=== PATIENT | male | born 1990 | race American Indian/Alaskan Native ===

== ENCOUNTER 2018-07-09 20:47 | Emergency (ER) | payer OTHER ==
[2018-07-09] MEDS ORDERED: PROVENTIL IH ONE ×2 (21:01→22:33)
--- NOTE | 2018-07-09 21:02 | Emergency Department Report ---
Blank Doc - Documentation Documentation: C/O SOB and wheezing and cough time 1. Wheezing and rhonchi throughout. Resp therapy paged for breathing treatment. This initial assessment diagnostic orders/clinical plan/treatment (s) is/Are subject change based on patient's health status, clinical progression and re-a ssessment by fellow clinical providers in the ED. Further treatment and work-up at subsequent clinical providers discretion. Patient/guardians urged not to elope from s their condition may be serious if not clinically assessed and managed. Initial order include:
[2018-07-09] MEDS ORDERED: SOLU-Medrol IV ONE (22:33)
[2018-07-09] MEDS ORDERED: MAGNESIUM SULFATE 2GM/50ML 2 GM/50 ML BAG IV ONE (22:33)
[2018-07-09] MEDS ORDERED: ATROVENT IH ONE (22:33)
--- NOTE | 2018-07-09 22:37 | Emergency Department Report ---
HPI - General Chief Complaint: Adult Asthma Time Seen by Provider: 07/09/18 20:57 - HPI HPI: Han 19 The patient is 28-year-old male presenting with a chief complaint of asthma exacerbation. Patient states weather triggers his asthma and yesterday he began having wheezing, chest tightness shortness breath or difficulty taking a deep breath in. Patient states his symptoms feel just like his asthma. Patient has occasional cough is nonproductive. Patient denies history of fever Location: Lungs Duration: 2 days Quality: Asthma Severity: Moderate Modifying factors: [see above] Context: [see above] Mode of transportation: [not driving] ED Past Medical Hx - Past Medical History Hx Asthma: Yes Additional medical history: ITP - Surgical History Past Surgical History?: No Additional Surgical History: gastric bypass - Family History Family history: no significant - Social History Smoking Status: Never Smoker Substance Use Type: None (denies illicit drug use) - Medications Home Medications: Home Medications Medication Instructions Recorded Confirmed Last Taken Type ALBUTEROL Inhaler (OR & NICU) 2 puff IH QID PRN #1 inhalation 07/10/18 Unknown Rx [Proair] Albuterol Sulfate [Albuterol 0.63% 0.63 mg IH TID PRN #90 ml 07/10/18 Unknown Rx NEBS] Prednisone [predniSONE 10 mg 10 mg PO .TAPER #1 tab.ds.pk 07/10/18 Unknown Rx (6-Day Pack, 21 Tabs)] ED Review of Systems ROS: Stated complaint: ASTHMA Other details as noted in HPI Constitutional: denies: fever Eyes: denies: eye pain ENT: denies: throat pain Respiratory: cough, shortness of breath, wheezing Cardiovascular: denies: chest pain Endocrine: no symptoms reported Gastrointestinal: denies: abdominal pain Genitourinary: denies: dysuria Musculoskeletal: denies: back pain Neurological: denies: headache Physical Exam - Physical Exam Vital Signs: Vital Signs 07/09/18 07/09/18 07/09/18 20:58 21:10 21:34 Temperature 98.1 F Pulse Rate 100 H Pulse Rate [ 90 89 Posterior Bilateral Throughout] Respiratory 20 Rate Respiratory 18 19 Rate [Posterior Bilateral Throughout] Blood Pressure 142/74 Blood Pressure [Left] O2 Sat by Pulse 97 Oximetry 07/09/18 07/09/18 22:05 22:13 Temperature 98 F Pulse Rate 91 H 85 Pulse Rate [ Posterior Bilateral Throughout] Respiratory 20 20 Rate Respiratory Rate [Posterior Bilateral Throughout] Blood Pressure Blood Pressure 148/79 [Left] O2 Sat by Pulse 93 97 Oximetry Physical Exam: GENERAL: The patient is well-developed well-nourished male lying on stretcher not appear to be in acute distress. [] HEENT: Normocephalic. Atraumatic. Extraocular motions are intact. Patient has moist mucous membranes. NECK: Supple. Trachea midline CHEST/LUNGS: Diffuse wheezing. There is no respiratory distress noted. HEART/CARDIOVASCULAR: Regular. There is no tachycardia. There is no gallop rub or murmur. ABDOMEN: Abdomen is soft, nontender. Patient has normal bowel sounds. There is no abdominal distention. SKIN: There is no rash. There is no edema. There is no diaphoresis. NEURO: The patient is awake, alert, and oriented. The patient is cooperative. The patient has normal speech MUSCULOSKELETAL: There is no evidence of acute injury. ED Course Vital Signs 07/09/18 07/09/18 07/09/18 20:58 21:10 21:34 Temperature 98.1 F Pulse Rate 100 H Pulse Rate [ 90 89 Posterior Bilateral Throughout] Respiratory 20 Rate Respiratory 18 19 Rate [Posterior Bilateral Throughout] Blood Pressure 142/74 Blood Pressure [Left] O2 Sat by Pulse 97 Oximetry 07/09/18 07/09/18 22:05 22:13 Temperature 98 F Pulse Rate 91 H 85 Pulse Rate [ Posterior Bilateral Throughout] Respiratory 20 20 Rate Respiratory Rate [Posterior Bilateral Throughout] Blood Pressure Blood Pressure 148/79 [Left] O2 Sat by Pulse 93 97 Oximetry - Reevaluation(s) Reevaluation #1: 07/09/18 23:59 Patient currently receiving nebulizer states he is feeling improvement Reevaluation #2: 07/10/18 01:33 Patient states he feels much improved. Lungs clear to auscultation bilaterally ED Medical Decision Making - Radiology Data Radiology results: report reviewed (chest x-ray), image reviewed (chest x-ray) interpreted by me: Chest x-ray-no focal infiltrates, no pneumothorax [facility] [address] [place] [address] XRay Report Signed Patient: TELMA FITZPATRICK MR#: [id number] : 1990 Acct:[id number] Age/Sex: 28 / M ADM Date: 07/09/18 Loc: ED Attending Dr: Ordering Physician: DEDE ISAACS Date of Service: 07/09/18 Proce dure(s): XR chest 1V ap Accession Number(s): [id number] cc: DEDE ISAACS Fluoro Time In Minutes: FINAL REPORT PROCEDURE: XR CHEST 1V AP TECHNIQUE: Chest radiograph anteroposterior view. CPT 69734 HISTORY: sob, wheezing and cough COMPARISON: No prior studies are available for comparison. FINDINGS: Heart: Normal. Mediastinum/Vessels: Normal. Lungs/Pleural space: Normal. Bony thorax: No acute osseous abnormality. Life support devices: None. IMPRESSION: No acute cardiopulmonary abnormality. Transcribed By: [place] Dictated By: KELVIN WALTER MD Electronically Authenticated By: KELVIN WALTER MD Signed Date/Time: 07/09/182344 DD/ 42 TD/TT: 07/09/182342 - Differential Diagnosis acute asthma exacerbation, bronchitis, Critical care attestation.: If time is entered above; I have spent that time in minutes in the direct care of this critically ill patient, excluding procedure time. ED Disposition Clinical Impression: Acute asthma exacerbation, Shortness of breath Disposition: - TO HOME OR SELFCARE Is pt being admited?: No Does the pt Need Aspirin: No Condition: Stable Instructions: Asthma (ED) Additional Instructions: Return to the emergency department immediately should you develop worsening symptoms, fever, inability to tolerate food or liquid or any other concerns. Prescriptions: ALBUTEROL Inhaler (OR & NICU) [Proair] 2 puff IH QID PRN #1 inhalation PRN Reason: Shortness Of Breath Albuterol Sulfate [Albuterol 0.63% NEBS] 0.63 mg IH TID PRN #90 ml PRN Reason: Wheezing Prednisone [predniSONE 10 mg (6-Day Pack, 21 Tabs)] 10 mg PO .TAPER #1 tab.ds.pk Referrals: PRIMARY CARE, [Primary Care Provider] - 3-5 Days CRISTY LADD MD [Staff Physician] - 3-5 Days [facility] [Outside] - 3-5 Days Time of Disposition: 01:34
--- NOTE | 2018-07-09 23:45 | XRay Report ---
FINAL REPORT PROCEDURE: XR CHEST 1V AP TECHNIQUE: Chest radiograph anteroposterior view. CPT 89938 HISTORY: sob, wheezing and cough COMPARISON: No prior studies are available for comparison. FINDINGS: Heart: Normal. Mediastinum/Vessels: Normal. Lungs/Pleural space: Normal. Bony thorax: No acute osseous abnormality. Life support devices: None. IMPRESSION: No acute cardiopulmonary abnormality.
[2018-07-10 01:43] VITALS: BP 137/97
== END 2018-07-10 01:44 | disposition home or self-care (01) ==
LOC: ED 20:47
DX: J45.901 Unspecified asthma with (acute) exacerbation (principal); Z88.1 Allergy status to other antibiotic agents; Z98.84 Bariatric surgery status
CPT/HCPCS: 71045; 94640; 96374; 96375; 99284; J2930; J3475

== ENCOUNTER 2018-10-09 23:15 | Emergency (ER) | payer OTHER ==
[2018-10-09] MEDS ORDERED: DUONEB *Not for PRN Use IH ONE (23:22)
[2018-10-09] MEDS ORDERED: PROVENTIL IH ONE (23:30)
[2018-10-09] MEDS ORDERED: ATROVENT IH ONE (23:30)
[2018-10-09] MEDS ORDERED: NACL 0.9% 500 ML 500 ML IV ONE (23:36)
[2018-10-09] MEDS ORDERED: MAGNESIUM SULFATE 2GM/50ML 2 GM/50 ML BAG IV ONE (23:36)
[2018-10-09] MEDS ORDERED: SOLU-Medrol IV ONE (23:36)
[2018-10-09] MEDS ORDERED: ADRENALINE P/F SUB-Q ONE (23:36)
--- NOTE | 2018-10-09 23:37 | Emergency Department Report ---
ED Asthma HPI - General Chief Complaint: Adult Asthma Stated Complaint: ASTHMA Time Seen by Provider: 10/09/18 23:32 Source: patient Mode of arrival: Ambulatory Limitations: No Limitations - History of Present Illness Initial Comments: This is a 28-year-old gentleman, history of asthma, not known to this provider previously. Reports no local primary care doctor, onset of asthma was as a child, no intubations, but reports one ICU admission. Meds medication is only albuterol. Patient presents to the emergency room today with a complaint of painless cough, wheezing, shortness of breath. Feels like his prior asthma attacks. No mention of headache, neck pain, chest pain, abdominal pain, the patient denies DVT, pulmonary embolus risk factors. MD Complaint: "asthma attack", shortness of breath, wheezing -: Gradual, hour(s) Asthma History: childhood onset, history of frequent attac, history of prior ED visit Severity: severe, worse than usual - Related Data Current Asthma Therapy: inhaled bronchodilator Previous Rx's Medication Instructions Recorded Last Taken Type ALBUTEROL Inhaler (OR & NICU) 2 puff IH QID PRN #1 inhalation 07/10/18 Unknown Rx [Proair] Albuterol Sulfate [Albuterol 0.63% 0.63 mg IH TID PRN #90 ml 07/10/18 Unknown Rx NEBS] Prednisone [predniSONE 10 mg 10 mg PO .TAPER #1 tab.ds.pk 07/10/18 Unknown Rx (6-Day Pack, 21 Tabs)] Albuterol Sulfate [Albuterol 0.63% 0.63 mg IH Q4HR PRN #2 ml 10/10/18 Unknown Rx NEBS] Albuterol Sulfate [Proair 90 mcg IH Q4HR PRN #2 aer.pow.ba 10/10/18 Unknown Rx Respiclick] Budesonide [Pulmicort Flexhaler] 360 mcg IH BID #2 aer.pow.ba 10/10/18 Unknown Rx Ipratropium (Nf) [Atrovent] 2 puff IH Q6HR PRN #1 inha 10/10/18 Unknown Rx predniSONE [Deltasone] 40 mg PO QDAY #8 tab 10/10/18 Unknown Rx Allergies Allergy/AdvReac Type Severity Reaction Status Date / Time azithromycin Allergy Hives Verified 07/09/18 20:49 ED Review of Systems ROS: Stated complaint: ASTHMA Other details as noted in HPI Constitutional: malaise. denies: fever Eyes: denies: eye discharge ENT: congestion Respiratory: shortness of breath, SOB with exertion, SOB at rest, wheezing Cardiovascular: denies: chest pain Gastrointestinal: denies: abdominal pain Musculoskeletal: denies: back pain Neurological: weakness Psychiatric: anxiety ED Past Medical Hx - Past Medical History Hx Asthma: Yes Additional medical history: ITP - Surgical History Additional Surgical History: gastric bypass - Social History Smoking Status: Never Smoker Substance Use Type: None (denies illicit drug use) - Medications Home Medications: Home Medications Medication Instructions Recorded Confirmed Last Taken Type ALBUTEROL Inhaler (OR & NICU) 2 puff IH QID PRN #1 inhalation 07/10/18 Unknown Rx [Proair] Albuterol Sulfate [Albuterol 0.63% 0.63 mg IH TID PRN #90 ml 07/10/18 Unknown Rx NEBS] Prednisone [predniSONE 10 mg 10 mg PO .TAPER #1 tab.ds.pk 07/10/18 Unknown Rx (6-Day Pack, 21 Tabs)] Albuterol Sulfate [Albuterol 0.63% 0.63 mg IH Q4HR PRN #2 ml 10/10/18 Unknown Rx NEBS] Albuterol Sulfate [Proair 90 mcg IH Q4HR PRN #2 aer.pow.ba 10/10/18 Unknown Rx Respiclick] Budesonide [Pulmicort Flexhaler] 360 mcg IH BID #2 aer.pow.ba 10/10/18 Unknown Rx Ipratropium (Nf) [Atrovent] 2 puff IH Q6HR PRN #1 inha 10/10/18 Unknown Rx predniSONE [Deltasone] 40 mg PO QDAY #8 tab 10/10/18 Unknown Rx ED Physical Exam - General Limitations: No Limitations General appearance: alert, anxious, obese - Head Head exam: Present: atraumatic, normocephalic - Eye Eye exam: Present: normal appearance, EOMI. Absent: nystagmus - ENT ENT exam: Present: normal exam, normal orophraynx, mucous membranes moist, normal external ear exam - Neck Neck exam: Present: normal inspection, full ROM. Absent: tenderness, meningismus - Respiratory Respiratory exam: Present: respiratory distress, wheezes, rhonchi - Cardiovascular Cardiovascular Exam: Present: normal rhythm, tachycardia, normal heart sounds. Absent: systolic murmur, diastolic murmur, rubs, gallop - GI/Abdominal GI/Abdominal exam: Present: soft. Absent: distended, tenderness, guarding, rebound, rigid, pulsatile mass - Rectal Rectal exam: Present: deferred - Extremities Exam Extremities exam: Present: normal inspection, full ROM, other (2+ pulses noted in the bilateral upper extremities. Moving 4 extremities spontaneously. No palpable cord.) - Back Exam Back exam: Present: normal inspection, full ROM. Absent: CVA tenderness (R), CVA tenderness (L), paraspinal tenderness, vertebral tenderness - Neurological Exam Neurological exam: Present: alert, other (Extraocular movements intact. Tongue midline. No facial droop. Facial sensation intact to light touch in the V1, V2, V3 distribution bilaterally. 5 and 5 strength in 4 extremities.. Sensation is intact to light touch in 4 extremities.). Absent: motor sensory deficit - Psychiatric Psychiatric exam: Present: normal affect, normal mood - Skin Skin exam: Present: warm, dry, intact, normal color. Absent: rash ED Course Vital Signs 10/09/18 10/09/18 23:21 23:30 Temperature 97.9 F Pulse Rate [ 97 H Posterior Bilateral Throughout] Respiratory 18 Rate Respiratory 36 H Rate [Posterior Bilateral Throughout] Blood Pressure 139/80 - Reevaluation(s) Reevaluation #1: 10/09/18 23:40 Differential diagnosis, including not limited to: Asthma exacerbation, bronchitis Assessment and plan: 28-year-old gentleman with no DVT or pulmonary embolus risk factors, who is low risk by well's criteria, with probable asthma exacerbation. We will treat him with albuterol, Atrovent, steroids, magnesium, IV fluids, and subcutaneous epinephrine. We will reassess after his initial therapies have res ulted. Reevaluation #2: 10/10/18 00:28 Feels improved. Still wheezing. Playing on a regular phone. Repeat epinephrine dose has been ordered. Reevaluation #3: 10/10/18 01:05 Reassessed. She feels improved. Able to walk without desaturation. Speaking in full sentences. Wheezing still present. We will discharge on albuterol, Atrovent, steroids, and pulmicort ED Medical Decision Making - Lab Data Vital Signs 10/09/18 23:21 Temperature 97.9 F Respiratory 18 Rate Blood Pressure 139/80 Vital Signs 10/09/18 10/09/18 10/10/18 23:21 23:30 01:03 Temperature 97.9 F Pulse Rate 81 Pulse Rate [ 97 H Posterior Bilateral Throughout] Respiratory 18 22 Rate Respiratory 36 H Rate [Posterior Bilateral Throughout] Blood Pressure 139/80 Blood Pressure 130/81 [Right] O2 Sat by Pulse 97 Oximetry Critical care attestation.: If time is entered above; I have spent that time in minutes in the direct care of this critically ill patient, excluding procedure time. ED Disposition Clinical Impression: Asthma exacerbation Qualifiers: Asthma severity: moderate Asthma persistence: unspecified Qualified Code(s): J45.901 - Unspecified asthma with (acute) exacerbation Disposition: TO HOME OR SELFCARE Is pt being admited?: No Does the pt Need Aspirin: No Condition: Stable Instructions: Asthma (ED) Additional Instructions: Take the albuterol, Atrovent as directed over the next 5 days. Use the Pulmicort maintenance medication as directed. Take the steroids as directed. Please follow up with the accounting support specialist within the next 2-3 weeks. Please return to the emergency room right away with new, worsening or different symptoms, or symptoms not present on the initial emergency room evaluation. Local accounting support specialist including the following physicians: João Sloan, Rashaad Referrals: THOMAS GRESHAM MD [Staff Physician] - 3-5 Days ADA HAINES MD [Staff Physician] - 3-5 Days STERLING SLOAN MD [Staff Physician] - 3-5 Days
[2018-10-10] MEDS ORDERED: ADRENALINE P/F SUB-Q ONE (00:27)
[2018-10-10 01:04] VITALS: BP 130/81
== END 2018-10-10 01:23 | disposition home or self-care (01) ==
LOC: ED 23:15
DX: J45.901 Unspecified asthma with (acute) exacerbation (principal)
CPT/HCPCS: 94640; 96365; 96372; 96375; 99283; J0171; J2930; J3475; J7040

== ENCOUNTER 2020-06-09 08:14 | Emergency (ER) | payer BC ==
--- NOTE | 2020-06-09 08:34 | Event Note ---
ED Screening Note ED Screening Note: Here 2 days ago has 2 accounts states he was told he had k stone reports worsening flank pain emr reviewed- no blood in urine/no scan This initial assessment/diagnostic orders/clinical plan/treatment(s) is/are subject to change based on patients health status, clinical progression and re- assessment by fellow clinical providers in the ED. Further treatment and workup at subsequent clinical providers discretion. Patient/guardian urged not to elope from the ED as their condition may be serious if not clinically assessed and managed. Initial orders include: repeat u/a to ER for eval
[2020-06-09 08:46] LABS: Bilirubin,Urine NEG (Negative); Blood,Urine NEG (Negative); Color,Urine Yellow (Yellow); Mucus,Urine FEW /HPF; Protein,Urine <15 mg/dL mg/dL (Negative)
[2020-06-09] MEDS ORDERED: SODIUM CHLORIDE 0.9% 500 ML 500 ML IV ONE (09:37)
[2020-06-09] MEDS ORDERED: HYDROmorphone 1 MG/1 ML INJ IV ONE ×2 (09:37→12:35)
[2020-06-09] MEDS ORDERED: ONDANSETRON 4 MG/2 ML INJ IV ONE (09:37)
--- NOTE | 2020-06-09 09:42 | Emergency Department Report ---
ED Abdominal Pain HPI - General Chief Complaint: Abdominal Pain Stated Complaint: KIDNEY STONE PUI?: No Time Seen by Provider: 06/09/20 08:30 Source: patient, RN notes reviewed, old records reviewed Mode of arrival: Ambulatory Limitations: No Limitations - History of Present Illness Initial Comments: The patient was evaluated in the emergency department for symptoms described in the history of present illness. He/she was evaluated in the context of the global COVID-19 pandemic, which necessitated consideration that the patient might be at risk for infection with the virus that causes COVID-19. Institutional protocols and algorithms that pertain to the evaluation of patients at risk for COVID-19 are in a state of rapid change based on information released by regulatory bodies including the CDC and federal and state organizations. These policies and algorithms were followed during the patient's care in the emergency department. Please note that these policies, procedures and recommendations changed on a rapid basis. Patient is a pleasant 29-year-old gentleman. He has a history of obesity, asthma, gastric sleeve performed in 2013 in [place], question appendicitis when he was younger, treated with oral antibiotics. He presents to the ER today with a recurrent complaint of epigastric and right upper quadrant pain that radiates to the back, with mild right flank and right lower quadrant pain. His pain is sharp and throbbing. It increases with palpation and decreases with rest. There are no irritative urinary symptoms. He denies travel, surgery, oral contraceptive use, DVT and pulmonary embolism risk factors. Minimal relief with [id number] NSAIDs. He reports that his bariatric surgeon cleared him to take NSAIDs. MD Complaint: abdominal pain -: Gradual, days(s) Location: RUQ, epigastric Radiation: R flank, back Severity: moderate Quality: aching Consistency: intermittent Improves With: medication, rest Worsens With: movement Associated Symptoms: nausea. denies: vomiting, diarrhea, fever, chills, constipation, dysuria, hematemesis, hematochezia, melena, hematuria, syncope - Related Data Previous Rx's Medication Instructions Recorded Last Taken Type Albuterol Mdi (or & Nicu Only) 2 puff IH QID PRN #1 inhalation 07/10/18 Unknown Rx [Proair] Albuterol Sulfate [Albuterol 0.63% 0.63 mg IH TID PRN #90 ml 07/10/18 Unknown Rx NEBS] Prednisone [predniSONE 10 mg 10 mg PO .TAPER #1 tab.ds.pk 07/10/18 Unknown Rx (6-Day Pack, 21 Tabs)] Albuterol Sulfate [Albuterol 0.63% 0.63 mg IH Q4HR PRN #2 ml 10/10/18 Unknown Rx NEBS] Albuterol Sulfate [Proair 90 mcg IH Q4HR PRN #2 aer.pow.ba 10/10/18 Unknown Rx Respiclick] Budesonide [Pulmicort Flexhaler] 360 mcg IH BID #2 aer.pow.ba 10/10/18 Unknown Rx Ipratropium (Nf) [Atrovent] 2 puff IH Q6HR PRN #1 inha 10/10/18 Unknown Rx predniSONE [Deltasone] 40 mg PO QDAY #8 tab 10/10/18 Unknown Rx Acetaminophen [Non-Aspirin Extra 500 mg PO Q6HR PRN #30 tablet 06/09/20 Unknown Rx Strength] Ondansetron [Zofran Odt] 4 mg PO Q8HR PRN #20 tab.rapdis 06/09/20 Unknown Rx Pantoprazole [Protonix TAB] 20 mg PO QDAY #30 tablet. 06/09/20 Unknown Rx oxyCODONE /ACETAMINOPHEN [Percocet 1 tab PO Q4HR #10 tab 06/09/20 Unknown Rx 5/325] Allergies Allergy/AdvReac Type Severity Reaction Status Date / Time azithromycin Allergy Hives Verified 06/09/20 08:19 ED Review of Systems ROS: Stated complaint: KIDNEY STONE Other details as noted in HPI Constitutional: denies: fever Eyes: denies: vision change ENT: denies: epistaxis Respiratory: denies: cough, shortness of breath Cardiovascular: denies: chest pain Gastrointestinal: abdominal pain, nausea. denies: vomiting Genitourinary: denies: urgency, dysuria, testicular pain Musculoskeletal: back pain Neurological: denies: weakness Hematological/Lymphatic: denies: easy bleeding ED Past Medical Hx - Past Medical History Hx Asthma: Yes Additional medical history: ITP - Surgical History Additional Surgical History: gastric bypass - Social History Smoking Status: Never Smoker - Medications Home Medications: Home Medications Medication Instructions Recorded Confirmed Last Taken Type Albuterol Mdi (or & Nicu Only) 2 puff IH QID PRN #1 inhalation 07/10/18 Unknown Rx [Proair] Albuterol Sulfate [Albuterol 0.63% 0.63 mg IH TID PRN #90 ml 07/10/18 Unknown Rx NEBS] Prednisone [predniSONE 10 mg 10 mg PO .TAPER #1 tab.ds.pk 07/10/18 Unknown Rx (6-Day Pack, 21 Tabs)] Albuterol Sulfate [Albuterol 0.63% 0.63 mg IH Q4HR PRN #2 ml 10/10/18 Unknown Rx NEBS] Albuterol Sulfate [Proair 90 mcg IH Q4HR PRN #2 aer.pow.ba 10/10/18 Unknown Rx Respiclick] Budesonide [Pulmicort Flexhaler] 360 mcg IH BID #2 aer.pow.ba 10/10/18 Unknown Rx Ipratropium (Nf) [Atrovent] 2 puff IH Q6HR PRN #1 inha 10/10/18 Unknown Rx predniSONE [Deltasone] 40 mg PO QDAY #8 tab 10/10/18 Unknown Rx Acetaminophen [Non-Aspirin Extra 500 mg PO Q6HR PRN #30 tablet 06/09/20 Unknown Rx Strength] Ondansetron [Zofran Odt] 4 mg PO Q8HR PRN #20 tab.rapdis 06/09/20 Unknown Rx Pantoprazole [Protonix TAB] 20 mg PO QDAY #30 tablet.dr 06/09/20 Unknown Rx oxyCODONE /ACETAMINOPHEN [Percocet 1 tab PO Q4HR #10 tab 06/09/20 Unknown Rx 5/325] ED Physical Exam - General Limitations: No Limitations General appearance: alert, anxious, obese - Head Head exam: Present: atraumatic, normocephalic - Eye Eye exam: Present: normal appearance, EOMI. Absent: nystagmus - ENT ENT exam: Present: normal exam, normal orophraynx, mucous membranes moist, normal external ear exam - Neck Neck exam: Present: normal inspection, full ROM. Absent: tenderness, meningismus - Respiratory Respiratory exam: Present: normal lung sounds bilaterally. Absent: respiratory distress, wheezes, rales, rhonchi, stridor, decreased breath sounds - Cardiovascular Cardiovascular Exam: Present: regular rate, normal rhythm, normal heart sounds. Absent: bradycardia, tachycardia, irregular rhythm, systolic murmur, diastolic murmur, rubs, gallop - GI/Abdominal GI/Abdominal exam: Present: soft, tenderness, normal bowel sounds, other (Right flank, right lower quadrant and right upper quadrant tender. Positive Dubon sign right upper quadrant.). Absent: distended, guarding, rebound, rigid, pulsatile mass - Rectal Rectal exam: Present: deferred - Extremities Exam Extremities exam: Present: normal inspection, full ROM, other (2+ pulses noted in the bilateral upper and lower extremities. There is no palpable cord. negative Homans sign. Muscular compartments are soft. The pelvis is stable.). Absent: pedal edema, calf tenderness - Back Exam Back exam: Present: normal inspection, full ROM. Absent: tenderness, CVA tenderness (R), CVA tenderness (L), paraspinal tenderness, vertebral tenderness - Neurological Exam Neurological exam: Present: alert, oriented X3, normal gait, other (No facial droop. Tongue midline. Extraocular movements intact bilaterally. Facial se nsation intact to light touch in V1, V2, V3 distribution bilaterally. 5 and a 5 strength in 4 extremities. Sensation intact to light touch in 4 extremities.). Absent: motor sensory deficit - Psychiatric Psychiatric exam: Present: anxious - Skin Skin exam: Present: warm, dry, intact, normal color. Absent: rash ED Course Vital Signs 06/09/20 06/09/20 08:23 10:03 Temperature 97.9 F Pulse Rate 69 70 Respiratory 20 18 Rate Blood Pressure 137/51 Blood Pressure 117/74 [Left] O2 Sat by Pulse 97 99 Oximetry - Reevaluation(s) Reevaluation #1: 06/09/20 11:04 Differential diagnosis, including but not limited to: Cholecystitis, renal colic, appendicitis, perforated viscus Assessment and plan: 29-year-old gentleman, who is obese, with a history of medically treated appendicitis, and gastric sleeve, presenting with right upper quadrant pain, right flank and right lower quadrant pain that radiates to the back. This is his second visit within a few days. He is very tender. He is not currently tachycardic, tachypneic or hypoxic, he is PERC negative, and denies DVT and pulmonary embolism risk factors. Check appropriate laboratory studies, CT scan of the abdomen pelvis, right upper quadrant ultrasound, obtain EKG, and reassess after initial data points. Reevaluation #2: 06/09/20 12:33 Right upper quadrant ultrasound negative for acute pathology. CT scan abdomen pelvis negative for acute pathology. Patient still having pain. Have requested urgent general surgery consultation, have discussed the patient's history, physical, pertinent laboratory studies, and imaging findings with general surgeon, Dr. Bonnie Doss, who will evaluate the patient shortly and make further recommendations. States internal hernia is very unlikely. Hiatal hernia is a possibility. Ga stric ulcer also a possibility. 06/09/20 14:02 Patient seen and evaluated by general surgery. Patient states his pain feels improved at this time. Nonvisualized renal colic is a diagnostic possibility. Hiatal hernia, gastric ulcer, peptic ulcer disease also possibility. However, at this point time, given improvement in symptoms, stable vital signs, unremarkable objective diagnostic imaging, patient suitable to follow-up as an outpatient. He reports that he feels improved, and reports readiness for discharge Outpatient discharge with close follow-up is recommended by both myself and [facility] surgeon of record. Patient is advised to avoid NSAIDs. No emergent surgical intervention or antibiotics are recommended at this time. 06/09/20 14:06 ED Medical Decision Making - Lab Data Result diagrams: 06/09/20 09:44 06/09/20 09:44 Vital Signs 06/09/20 06/09/20 08:23 10:03 Temperature 97.9 F Pulse Rate 69 70 Respiratory 20 18 Rate Blood Pressure 137/51 Blood Pressure 117/74 [Left] O2 Sat by Pulse 97 99 Oximetry Lab Results 06/09/20 06/09/20 06/09/20 Range/Units 08:36 09:44 09:44 WBC 9.1 (4.5-11.0) K/mm3 RBC 4.96 (3.65-5.03) M/mm3 Hgb 15.1 (11.8-15.2) gm/dl Hct 44.2 (35.5-45.6) % MCV 89 (84-94) fl MCH 31 (28-32) pg MCHC 34 (32-34) % RDW 14.3 (13.2-15.2) % Plt Count 331 (140-440) K/mm3 Lymph % (Auto) 24.1 (13.4-35.0) % [place] % (Auto) 9.1 H (0.0-7.3) % Eos % (Auto) 6.4 H (0.0-4.3) % Baso % (Auto) 1.2 (0.0-1.8) % Lymph # (Auto) 2.2 (1.2-5.4) K/mm3 [place] # (Auto) 0.8 (0.0-0.8) K/mm3 Eos # (Auto) 0.6 H (0.0-0.4) K/mm3 Baso # (Auto) 0.1 (0.0-0.1) K/mm3 Seg Neutrophils % 59.2 (40.0-70.0) % Seg Neutrophils # 5.4 (1.8-7.7) K/mm3 Sodium 137 (137-145) mmol/L Potassium 4.7 (3.6-5.0) mmol/L Chloride 106.8 (98-107) mmol/L Carbon Dioxide 27 (22-30) mmol/L Anion Gap 8 mmol/L BUN 17 (9-20) mg/dL Creatinine 0.6 L (0.8-1.3) mg/dL Estimated GFR > 60 ml/min BUN/Creatinine Ratio 28 % Glucose 93 (75-100) mg/dL Calcium 8.6 (8.4-10.2) mg/dL Magnesium (1.7-2.3) mg/dL Total Bilirubin 0.30 (0.1-1.2) mg/dL AST 20 (5-40) units/L ALT 17 (7-56) units/L Alkaline Phosphatase 64 (35-129) units/L Total Creatine Kinase (55-170) units/L Total Protein 7.1 (6.3-8.2) g/dL Albumin 4.1 (3.9-5) g/dL Albumin/Globulin Ratio 1.4 % Lipase 30 (13-60) units/L Urine Color Yellow (Yellow) Urine Turbidity Clear (Clear) Urine pH 7.0 (5.0-7.0) Ur Specific [place] 1.019 (1.003-1.030) Urine Protein <15 mg/dl (Negative) mg/dL Urine Glucose (UA) Neg (Negative) mg/dL Urine Ketones Neg (Negative) mg/dL Urine Blood Neg (Negative) Urine Nitrite Neg (Negative) Urine Bilirubin Neg (Negative) Urine Urobilinogen 4.0 (<2.0) mg/dL Ur Leukocyte Esterase Neg (Negative) Urine WBC (Auto) 1.0 (0.0-6.0) /HPF Urine RBC (Auto) 1.0 (0.0-6.0) /HPF Urine Mucus Few /HPF 06/09/20 Range/Units 09:44 WBC (4.5-11.0) K/mm3 RBC (3.65-5.03) M/mm3 Hgb (11.8-15.2) gm/dl Hct (35.5-45.6) % MCV (84-94) fl MCH (28-32) pg MCHC (32-34) % RDW (13.2-15.2) % Plt Count (140-440) K/mm3 Lymph % (Auto) (13.4-35.0) % [place] % (Auto) (0.0-7.3) % Eos % (Auto) (0.0-4.3) % Baso % (Auto) (0.0-1.8) % Lymph # (Auto) (1.2-5.4) K/mm3 [place] # (Auto) (0.0-0.8) K/mm3 Eos # (Auto) (0.0-0.4) K/mm3 Baso # (Auto) (0.0-0.1) K/mm3 Seg Neutrophils % (40.0-70.0) % Seg Neutrophils # (1.8-7.7) K/mm3 Sodium (137-145) mmol/L Potassium (3.6-5.0) mmol/L Chloride (98-107) mmol/L Carbon Dioxide (22-30) mmol/L Anion Gap mmol/L BUN (9-20) mg/dL Creatinine (0.8-1.3) mg/dL Estimated GFR ml/min BUN/Creatinine Ratio % Glucose (75-100) mg/dL Calcium (8.4-10.2) mg/dL Magnesium 2.20 (1.7-2.3) mg/dL Total Bilirubin (0.1-1.2) mg/dL AST (5-40) units/L ALT (7-56) units/L Alkaline Phosphatase (35-129) units/L Total Creatine Kinase 107 (55-170) units/L Total Protein (6.3-8.2) g/dL Albumin (3.9-5) g/dL Albumin/Globulin Ratio % Lipase (13-60) units/L Urine Color (Yellow) Urine Turbidity (Clear) Urine pH (5.0-7.0) Ur Specific [place] (1.003-1.030) Urine Protein (Negative) mg/dL Urine Glucose (UA) (Negative) mg/dL Urine Ketones (Negative) mg/dL Urine Blood (Negative) Urine Nitrite (Negative) Urine Bilirubin (Negative) Urine Urobilinogen (<2.0) mg/dL Ur Leukocyte Esterase (Negative) Urine WBC (Auto) (0.0-6.0) /HPF Urine RBC (Auto) (0.0-6.0) /HPF Urine Mucus /HPF - EKG Data -: EKG Interpreted by Or EKG shows normal: sinus rhythm Rate: normal - EKG Data 06/09/20 11:01 Sinus rhythm, 70 bpm, normal axis, QTC 451 ms, otherwise, unremarkable EKG, intervals otherwise unremarkable, not a STEMI. - Radiology Data Radiology results: pending, report reviewed, image reviewed LIMITED RUQ ABDOMINAL ULTRASOUND INDICATION / CLINICAL INFORMATION: ruq rad to back. COMPARISON: No relevant prior imaging study available. FINDINGS: PANCREAS: Visualized portions of the pancreas are within normal limits. ABDOMINAL AORTA: No significant abnormality. IVC: No significant abnormality. LIVER: The liver measures 16.5 cm in length. The liver demonstrates increased echogenicity, compatible with fatty infiltration. No focal hepatic lesion. PORTAL VEIN: Normal hepatopedal blood flow in the main portal vein. GALLBLADDER: The gallbladder is unremarkable. There is no cholelithiasis, gallbladder wall thickening, or pericholecystic fluid. BILE DUCTS: No significant abnormality. Common bile duct measures 5 mm. RIGHT KIDNEY: 7 mm echogenic focus at the midpole of the right kidney, may reflect renal calculus. No evidence of hydronephrosis. FREE FLUID: None. ADDITIONAL FINDINGS: None. IMPRESSION: 1. Fatty infiltration of the liver. No focal hepatic lesion. 2. Probable nonobstructing right renal calculus. No evidence of hydronephrosis. Signer Name: Jaison Ledesma MD Signed: 06/09/2020 9:32 AM Workstation Name: [id number] Critical care attestation.: If time is entered above; I have spent that time in minutes in the direct care of this critically ill patient, excluding procedure time. ED Disposition Clinical Impression: Acute abdominal pain Disposition: DC-01 TO HOME OR SELFCARE Is pt being admited?: No Does the pt Need Aspirin: No Condition: Stable Instructions: Abdominal Pain, Adult Additional Instructions: Do not take Motrin, ibuprofen, Naprosyn, Aleve, avoid consumption of heavy and spicy foods, avoid consumption of alcohol, tobacco, and smoke products. Patient may take the prescribed acetaminophen medication as needed, with Percocet as needed for breakthrough pain Please note that maximum daily dose of Tylenol should not exceed 3 g per 24 h ours, therefore, please be mindful of Tylenol/acetaminophen component in both Percocet, and acetaminophen. Prescribed acetaminophen pills are 500 mg each, each Percocet tablet contains 325 mg of acetaminophen. Exercise caution when taking Percocet, as it may cause addiction, constipation, dependence, and may impair judgment. Do not drive, consume alcohol, or make important decisions when taking Percocet. Please take the prescribed pain medication, nausea medications as needed and directed. Please follow-up with a primary care doctor within the next 5 to 7 days. Please avoid consumption of heavy and spicy foods, and consume fiber, vegetables, and lean protein. Do not take metformin medication for the next 2 days if patient takes this medication. Please return to the emergency room right away with new pain, worsened pain, migration of pain, projectile vomiting, change in mental status, confusion, inability to tolerate liquid feeds, new, worsened or different symptoms not present on the initial emergency room evaluation. Referrals: DELL ADHIKARI MD [Staff Physician] - 3-5 Days [facility] [Provider Group] - 3-5 Days
[2020-06-09 10:08] LABS: Basophils # (Auto) 0.1 K/mm3 (0.0-0.1); Basophils % (Auto) 1.2 % (0.0-1.8); Eosinophils # (Auto) 0.6 K/mm3 (0.0-0.4); Eosinophils % (Auto) 6.4 % (0.0-4.3); Hematocrit 44.2 % (35.5-45.6); Hemoglobin 15.1 gm/dl (11.8-15.2); Lymphocytes # (Auto) 2.2 K/mm3 (1.2-5.4); Lymphocytes % (Auto) 24.1 % (13.4-35.0); Mean Corpuscular HGB Conc 34 % (32-34); Mean Corpuscular Volume 89 fl (84-94); Monocytes # (Auto) 0.8 K/mm3 (0.0-0.8); Monocytes % (Auto) 9.1 % (0.0-7.3); Platelet Count 331 K/mm3 (140-440); Red Blood Count 4.96 M/mm3 (3.65-5.03); Red Cell Distribution Width 14.3 % (13.2-15.2)
[2020-06-09 10:25] LABS: Alanine Aminotransferase 17 units/L (7-56); Albumin 4.1 g/dL (3.9-5); Blood Urea Nitrogen 17 mg/dL (9-20); Calcium 8.6 mg/dL (8.4-10.2); Hemolysis Index 23
--- NOTE | 2020-06-09 10:36 | Ultrasound Report ---
LIMITED RUQ ABDOMINAL ULTRASOUND INDICATION / CLINICAL INFORMATION: ruq rad to back. COMPARISON: No relevant prior imaging study available. FINDINGS: PANCREAS: Visualized portions of the pancreas are within normal limits. ABDOMINAL AORTA: No significant abnormality. IVC: No significant abnormality. LIVER: The liver measures 16.5 cm in length. The liver demonstrates increased echogenicity, compatib le with fatty infiltration. No focal hepatic lesion. PORTAL VEIN: Normal hepatopedal blood flow in the main portal vein. GALLBLADDER: The gallbladder is unremarkable. There is no cholelithiasis, gallbladder wall thickening , or pericholecystic fluid. BILE DUCTS: No significant abnormality. Common bile duct measures 5 mm. RIGHT KIDNEY: 7 mm echogenic focus at the midpole of the right kidney, may reflect renal calculus. No evidence of hydronephrosis. FREE FLUID: None. ADDITIONAL FINDINGS: None. IMPRESSION: 1. Fatty infiltration of the liver. No focal hepatic lesion. 2. Probable nonobstructing right renal calculus. No evidence of hydronephrosis. Signer Name: Jaison Ledesma MD Signed: 06/09/2020 10:32 AM Workstation Name: [id number]
[2020-06-09 10:41] LABS: BUN/Creatinine Ratio 28
[2020-06-09 12:02] LABS: INR 0.97 (0.87-1.13)
[2020-06-09] MEDS: HYDROmorphone 1 MG/1 ML INJ IV ONE (12:03)
--- NOTE | 2020-06-09 12:09 | Cat Scan Report ---
CT ABDOMEN AND PELVIS WITH CONTRAST INDICATION: Right upper and right lower quadrant abdominal pain. TECHNIQUE: Axial CT images were obtained through the abdomen and pelvis after 100 cc Omni [address] scans at this location are performed using CT dose reduction for ALARA by means of automated expos ure control. COMPARISON: None available. FINDINGS: LOWER CHEST: No significant abnormality. LIVER: No significant abnormality. GALLBLADDER: Surgically absent BILE DUCTS: No significant abnormality. PANCREAS: No significant abnormality. SPLEEN: No significant abnormality. ADRENALS: No significant abnormality. RIGHT KIDNEY and URETER: No significant abnormality. LEFT KIDNEY and URETER: No significant abnormality. STOMACH and SMALL BOWEL: Gastric bypass surgery COLON: No significant abnormality. APPENDIX: No significant abnormality. PERITONEUM: No free fluid. No free air. No fluid collection. LYMPH NODES: No significant adenopathy. AORTA and ARTERIES: No significant abnormality. IVC and VEINS: No significant abnormality. URINARY BLADDER: No significant abnormality. REPRODUCTIVE ORGANS: No significant abnormality. ADDITIONAL FINDINGS: None. SKELETAL SYSTEM: Degenerative changes thoracic spine IMPRESSION: 1. No significant abnormality. Signer Name: Gus Avina MD Signed: 06/09/2020 12:05 PM Workstation Name: [id number]
[2020-06-09] MEDS ORDERED: PANTOPRAZOLE 40 MG INJ IV ONE (12:32)
[2020-06-09 14:28] VITALS: BP 112/63
--- NOTE | 2020-06-09 14:39 | Consultation ---
History of Present Illness Consult date: 06/09/20 Reason for consult: abdominal pain Chief complaint: Abdominal pain - History of present illness History of present illness: 29-year-old male with past medical history of morbid obesity status post laparos copic gastric sleeve in [place] several years ago, cholecystectomy, splenectomy. The patient presents to the emergency room with 4 days of intermittent, worsening right lateral abdominal pain radiating to the back. He states that the pain is localized on the right side and does not travel to the left. He had pain like this once in the past when he was a child and was diagnosed with appendicitis. Appendicitis was treated medically. His abdominal pain is described as throbbing. It is exacerbated by certain movements and bending. He has been tolerating a diet but does admit to intermittent nausea. No vomiting. No fevers or chills. He states that he has not been urinating as much as he usually does. No dysuria. He is constipated. He has been taking Motrin for the pain and states his bariatric surgeon was okay with him resuming NSAIDs if needed. Past History Past Medical History: other (Morbid obesity, ITP) Past Surgical History: cholecystectomy, Other (Gastric sleeve, splenectomy) Social history: no significant social history Family history: no significant family history Medications and Allergies Allergies Allergy/AdvReac Type Severity Reaction Status Date / Time azithromycin Allergy Hives Verified 06/09/20 08:19 Home Medications Medication Instructions Recorded Confirmed Last Taken Type Albuterol Mdi (or & Nicu Only) 2 puff IH QID PRN #1 inhalation 07/10/18 Unknown Rx [Proair] Albuterol Sulfate [Albuterol 0.63% 0.63 mg IH TID PRN #90 ml 07/10/18 Unknown Rx NEBS] Prednisone [predniSONE 10 mg 10 mg PO .TAPER #1 tab.ds.pk 07/10/18 Unknown Rx (6-Day Pack, 21 Tabs)] Albuterol Sulfate [Albuterol 0.63% 0.63 mg IH Q4HR PRN #2 ml 10/10/18 Unknown Rx NEBS] Albuterol Sulfate [Proair 90 mcg IH Q4HR PRN #2 aer.pow.ba 10/10/18 Unknown Rx Respiclick] Budesonide [Pulmicort Flexhaler] 360 mcg IH BID #2 aer.pow.ba 10/10/18 Unknown Rx Ipratropium (Nf) [Atrovent] 2 puff IH Q6HR PRN #1 inha 10/10/18 Unknown Rx predniSONE [Deltasone] 40 mg PO QDAY #8 tab 10/10/18 Unknown Rx Acetaminophen [Non-Aspirin Extra 500 mg PO Q6HR PRN #30 tablet 06/09/20 Unknown Rx Strength] Ondansetron [Zofran Odt] 4 mg PO Q8HR PRN #20 tab.henriettadis 06/09/20 Unknown Rx Pantoprazole [Protonix TAB] 20 mg PO QDAY #30 tablet. 06/09/20 Unknown Rx oxyCODONE /ACETAMINOPHEN [Percocet 1 tab PO Q4HR #10 tab 06/09/20 Unknown Rx 5/325] Review of Systems All systems: negative (10 point ROS performed and negative except for that listed in HPI) Exam Vital Signs Temp Pulse Resp BP Pulse Ox 97.9 F 69 20 137/51 97 06/09/20 08:23 06/09/20 08:23 06/09/20 08:23 06/09/20 08:23 06/09/20 08:23 Narrative exam: Gen.: Awake, alert, oriented 3. No apparent distress ENT: Trachea midline. No lymphadenopathy. No scleral icterus or conjunctival pallor CV: S1, S2 present Respiratory: No audible wheezes Abdomen: Soft, nondistended, right mid lateral abdominal pain on palpation. Right CVA tenderness. Well-healed surgical scars. No rebound, rigidity, guarding Extremities: No clubbing, cyanosis, edema Results - Labs 06/09/20 09:44 06/09/20 09:44 Abnormal lab results 06/09/20 06/09/20 Range/Units 09:44 09:44 [place] % (Auto) 9.1 H (0.0-7.3) % Eos % (Auto) 6.4 H (0.0-4.3) % Eos # (Auto) 0.6 H (0.0-0.4) K/mm3 Creatinine 0.6 L (0.8-1.3) mg/dL Diabetes panel 06/09/20 Range/Units 09:44 Sodium 137 (137-145) mmol/L Potassium 4.7 (3.6-5.0) mmol/L Chloride 106.8 (98-107) mmol/L Carbon Dioxide 27 (22-30) mmol/L BUN 17 (9-20) mg/dL Creatinine 0.6 L (0.8-1.3) mg/dL Glucose 93 (75-100) mg/dL Calcium 8.6 (8.4-10.2) mg/dL AST 20 (5-40) units/L ALT 17 (7-56) units/L Alkaline Phosphatase 64 (35-129) units/L Total Protein 7.1 (6.3-8.2) g/dL Albumin 4.1 (3.9-5) g/dL Calcium panel 06/09/20 Range/Units 09:44 Calcium 8.6 (8.4-10.2) mg/dL Albumin 4.1 (3.9-5) g/dL Pituitary panel 06/09/20 Range/Units 09:44 Sodium 137 (137-145) mmol/L Potassium 4.7 (3.6-5.0) mmol/L Chloride 106.8 (98-107) mmol/L Carbon Dioxide 27 (22-30) mmol/L BUN 17 (9-20) mg/dL Creatinine 0.6 L (0.8-1.3) mg/dL Glucose 93 (75-100) mg/dL Calcium 8.6 (8.4-10.2) mg/dL Adrenal panel 06/09/20 Range/Units 09:44 Sodium 137 (137-145) mmol/L Potassium 4.7 (3.6-5.0) mmol/L Chloride 106.8 (98-107) mmol/L Carbon Dioxide 27 (22-30) mmol/L BUN 17 (9-20) mg/dL Creatinine 0.6 L (0.8-1.3) mg/dL Glucose 93 (75-100) mg/dL Calcium 8.6 (8.4-10.2) mg/dL Total Bilirubin 0.30 (0.1-1.2) mg/dL AST 20 (5-40) units/L ALT 17 (7-56) units/L Alkaline Phosphatase 64 (35-129) units/L Total Protein 7.1 (6.3-8.2) g/dL Albumin 4.1 (3.9-5) g/dL - Imaging CT scan - abdomen: report reviewed, image reviewed CT scan - pelvis: report reviewed, image reviewed US - abdomen: report reviewed, image reviewed Assessment and Plan 29-year-old male with right-sided abdominal pain Patient is stable with a normal white blood cell count. Imaging reviewed personally and no acute surgical pathology identified. Plan: 1. Prn pain control 2. IVF 3. avoid NSAIDs 4. diet as tolerated 5. No general surgery intervention indicated at this time. Pain may be related to nonobstructing right renal calculus as patient has pain on right side with CVA tenderness. May be discharged once pain is controlled as per ER provider. Discussed with Dr. Adame. Thank you for this consultation. Please call with any questions or concerns. Evaluation and treatment of this patient was during the time of the national and state emergency arising from COVID19 coronavirus pandemic. Treatment and procedures performed meet the current and available best practice and guidelines for patient during the COVID pandemic.
== END 2020-06-09 14:28 | disposition home or self-care (01) ==
LOC: ED 08:14
DX: R10.11 Right upper quadrant pain (principal); R10.13 Epigastric pain; J45.909 Unspecified asthma, uncomplicated; Z98.890 Other specified postprocedural states; Z79.899 Other long term (current) drug therapy; Z88.1 Allergy status to other antibiotic agents
CPT/HCPCS: 36415; 74177; 76705; 80053; 81001; 82550; 83690; 83735; 85025; 85610; 93005; 96361; 96374; 96375; 96376; 99284; C9113; J1170; J2405; J7040; Q9967

== ENCOUNTER 2020-06-23 14:38 | Emergency (ER) | payer BC ==
[2020-06-23] MEDS ORDERED: diphenhydrAMINE 50 MG/ML VIAL IV ONE (16:44)
[2020-06-23] MEDS ORDERED: SODIUM CHLORIDE 0.9% 1000 ML 1,000 ML IV ONE (16:44)
[2020-06-23] MEDS ORDERED: METOCLOPRAMIDE 10 MG/2 ML INJ IV ONE (16:44)
[2020-06-23] MEDS ORDERED: KETOROLAC 30 MG/1 ML INJ IV ONE (16:46)
--- NOTE | 2020-06-23 16:53 | Event Note ---
ED Screening Note Date of service: 06/23/20 Time: 16:30 ED Screening Note: Patient is a 30 yo male with past medical history of kidney stones and morbid obesity who presents to the ED with c/o acute onset persistent diffuse body aches and pains, persistent intractable nausea and vomiting with headache and lightheadedness x 4 hours. Patient was extensively evaluated in the ED about 8 hours ago after he had presented with c/o right flank pain, and all lab test results and abdomen ct scan w/o contrast reports were all unremarkable. Patient was discharged home and but now returned to the ED with the stated complaints. Patient denies dyspnea, chest pain, fever, chills, abdominal pain, vision changes, cough, nasal and sinus congestion, headache, dysuria, and hematuria. This initial assessment/diagnostic orders/clinical plan/treatment(s) is/are subject to change based on patients health status, clinical progression and re- assessment by fellow clinical providers in the ED. Further treatment and workup at subsequent clinical providers discretion. Patient/guardian urged not to elope from the ED as their condition may be serious if not clinically assessed and managed. Initial orders include: CBC, CMP, NS 1 L IV bolus
[2020-06-23 17:06] LABS: Basophils # (Auto) 0.1 K/mm3 (0.0-0.1); Basophils % (Auto) 0.8 % (0.0-1.8); Eosinophils # (Auto) 0.4 K/mm3 (0.0-0.4); Eosinophils % (Auto) 3.3 % (0.0-4.3); Hematocrit 42.6 % (35.5-45.6); Hemoglobin 14.4 gm/dl (11.8-15.2); Lymphocytes # (Auto) 1.6 K/mm3 (1.2-5.4); Lymphocytes % (Auto) 15.4 % (13.4-35.0); Mean Corpuscular HGB Conc 34 % (32-34); Mean Corpuscular Volume 90 fl (84-94); Monocytes # (Auto) 0.8 K/mm3 (0.0-0.8); Monocytes % (Auto) 7.8 % (0.0-7.3); Platelet Count 327 K/mm3 (140-440); Red Blood Count 4.74 M/mm3 (3.65-5.03); Red Cell Distribution Width 14.2 % (13.2-15.2)
[2020-06-23 17:28] LABS: Alanine Aminotransferase 17 units/L (7-56); BUN/Creatinine Ratio 33; Blood Urea Nitrogen 20 mg/dL (9-20); Calcium 8.9 mg/dL (8.4-10.2); Hemolysis Index 4
--- NOTE | 2020-06-23 19:59 | Emergency Department Report ---
ED General Adult HPI - General Chief complaint: Abdominal Pain Stated complaint: VOMITTING Time Seen by Provider: 06/23/20 19:33 Source: patient Mode of arrival: Ambulatory Limitations: No Limitations - History of Present Illness Initial comments: Patient presents to the emergency department the chief complaint of nausea and vomiting that started last night. Patient states that he is having some right flank pain as well and was seen in the emergency department yesterday for that. Patient denies any chest pain, shortness breath, headache. Patient does state he has a history of renal stones on the right side. Patient states he is had cholecystectomy and splenectomy 7 years ago. -: Sudden Location: abdomen Severity scale (0 -10): 3 Quality: aching Consistency: colicky Improves with: none Worsens with: none Associated Symptoms: denies other symptoms Treatments Prior to Arrival: none - Related Data Previous Rx's Medication Instructions Recorded Last Taken Type Acetaminophen [Tylenol] 650 mg PO Q6HR PRN #20 tablet 04/23/20 Unknown Rx Ketorolac [Toradol] 10 mg PO Q6H PRN #20 tablet 06/07/20 Unknown Rx Ondansetron [Zofran ODT TAB] 8 mg PO Q12HR #20 tab.rapdis 06/07/20 Unknown Rx Tamsulosin [Flomax] 0.4 mg PO QDAY #5 cap 06/07/20 Unknown Rx Ondansetron [Zofran Odt] 4 mg PO Q4HR PRN #20 tab.rapdis 06/23/20 Unknown Rx Allergies Allergy/AdvReac Type Severity Reaction Status Date / Time azithromycin [From Zithromax] Allergy Rash Verified 06/23/20 14:46 ED Review of Systems ROS: Stated complaint: VOMITTING Other details as noted in HPI Comment: All other systems reviewed and negative Constitutional: denies: chills, fever Eyes: denies: eye pain, eye discharge, vision change ENT: denies: ear pain, throat pain Respiratory: denies: cough, shortness of breath, wheezing Cardiovascular: denies: chest pain, palpitations Endocrine: no symptoms reported Gastrointestinal: denies: abdominal pain, nausea, diarrhea Genitourinary: denies: urgency, dysuria Musculoskeletal: denies: back pain, joint swelling, arthralgia Skin: denies: rash, lesions Neurological: denies: headache, weakness, paresthesias Psychiatric: denies: anxiety, depression Hematological/Lymphatic: denies: easy bleeding, easy bruising ED Past Medical Hx - Past Medical History Hx Asthma: Yes Additional medical history: ITP - Surgical History Hx Cholecystectomy: Yes Additional Surgical History: GASTRIC SLEEVE. spleen removed - Social History Smoking Status: Never Smoker Substance Use Type: None - Medications Home Medications: Home Medications Medication Instructions Recorded Confirmed Last Taken Type Acetaminophen [Tylenol] 650 mg PO Q6HR PRN #20 tablet 04/23/20 Unknown Rx Ketorolac [Toradol] 10 mg PO Q6H PRN #20 tablet 06/07/20 Unknown Rx Ondansetron [Zofran ODT TAB] 8 mg PO Q12HR #20 tab.rapdis 06/07/20 Unknown Rx Tamsulosin [Flomax] 0.4 mg PO QDAY #5 cap 06/07/20 Unknown Rx Ondansetron [Zofran Odt] 4 mg PO Q4HR PRN #20 tab.rapdis 06/23/20 Unknown Rx ED Physical Exam - General Limitations: No Limitations General appearance: alert, in no apparent distress - Head Head exam: Present: atraumatic, normocephalic - Eye Eye exam: Present: normal appearance - ENT ENT exam: Present: mucous membranes moist - Neck Neck exam: Present: normal inspection - Respiratory Respiratory exam: Present: normal lung sounds bilaterally. Absent: respiratory distress - Cardiovascular Cardiovascular Exam: Present: regular rate, normal rhythm. Absent: systolic murmur, diastolic murmur, rubs, gallop - GI/Abdominal GI/Abdominal exam: Present: soft, normal bowel sounds, other (No CVA tenderness). Absent: distended, tenderness - Rectal Rectal exam: Present: deferred - Extremities Exam Extremities exam: Present: normal inspection - Back Exam Back exam: Present: normal inspection - Neurological Exam Neurological exam: Present: alert, oriented X3, CN II-XII intact. Absent: motor sensory deficit - Psychiatric Psychiatric exam: Present: normal affect, normal mood - Skin Skin exam: Present: warm, dry, intact, normal color. Absent: rash ED Course Vital Signs 06/23/20 06/23/20 14:48 17:56 Temperature 98.1 F Pulse Rate 84 Respiratory 18 18 Rate Blood Pressure 110/63 O2 Sat by Pulse 96 Oximetry ED Medical Decision Making - Lab Data Result diagrams: 06/23/20 16:51 06/23/20 16:51 Lab Results 06/23/20 06/23/20 Range/Units 16:51 16:51 WBC 10.6 (4.5-11.0) K/mm3 RBC 4.74 (3.65-5.03) M/mm3 Hgb 14.4 (11.8-15.2) gm/dl Hct 42.6 (35.5-45.6) % MCV 90 (84-94) fl MCH 31 (28-32) pg MCHC 34 (32-34) % RDW 14.2 (13.2-15.2) % Plt Count 327 (140-440) K/mm3 Lymph % (Auto) 15.4 (13.4-35.0) % [place] % (Auto) 7.8 H (0.0-7.3) % Eos % (Auto) 3.3 (0.0-4.3) % Baso % (Auto) 0.8 (0.0-1.8) % Lymph # (Auto) 1.6 (1.2-5.4) K/mm3 [place] # (Auto) 0.8 (0.0-0.8) K/mm3 Eos # (Auto) 0.4 (0.0-0.4) K/mm3 Baso # (Auto) 0.1 (0.0-0.1) K/mm3 Seg Neutrophils % 72.7 H (40.0-70.0) % Seg Neutrophils # 7.7 (1.8-7.7) K/mm3 Sodium 136 L (137-145) mmol/L Potassium 4.4 (3.6-5.0) mmol/L Chloride 105.3 (98-107) mmol/L Carbon Dioxide 25 (22-30) mmol/L Anion Gap 10 mmol/L BUN 20 (9-20) mg/dL Creatinine 0.6 L (0.8-1.3) mg/dL Estimated GFR > 60 ml/min BUN/Creatinine Ratio 33 % Glucose 82 (75-100) mg/dL Calcium 8.9 (8.4-10.2) mg/dL Total Bilirubin 0.70 (0.1-1.2) mg/dL AST 16 (5-40) units/L ALT 17 (7-56) units/L Alkaline Phosphatase 56 (35-129) units/L Total Protein 7.0 (6.3-8.2) g/dL Albumin 4.0 (3.9-5) g/dL Albumin/Globulin Ratio 1.3 % - Medical Decision Making Reviewed the patient's CAT scan of the abdomen from 211 which shows no acute process Reviewed the patient's urinalysis from the same visit was also shows no acute process. Patient states he feels better after medications and fluids given in the ED Critical care attestation.: If time is entered above; I have spent that time in minutes in the direct care of this critically ill patient, excluding procedure time. ED Disposition Clinical Impression: Nausea & vomiting, Flank pain Disposition: DC-01 TO HOME OR SELFCARE Is pt being admited?: No Does the pt Need Aspirin: No Condition: Stable Instructions: Nausea, Adult, Nausea and Vomiting, Adult, Flank Pain, Adult, [id number] Additional Instructions: Return if worse Referrals: DALY TORRES MD [Primary Care Provider] - 3-5 Days Time of Disposition: 19:59
[2020-06-23 20:14] VITALS: BP 140/89
== END 2020-06-23 20:14 | disposition home or self-care (01) ==
LOC: ED 14:38 → MERGE 14:38 → ED 20:14
DX: R11.2 Nausea with vomiting, unspecified (principal); R10.9 Unspecified abdominal pain; J45.909 Unspecified asthma, uncomplicated; Z90.49 Acquired absence of other specified parts of digestive tract; Z98.890 Other specified postprocedural states; Z79.899 Other long term (current) drug therapy; Z88.1 Allergy status to other antibiotic agents
CPT/HCPCS: 36415; 80053; 85025; 96361; 96374; 96375; J1200; J1885; J2765; J7030

== ENCOUNTER 2021-02-23 10:10 | Emergency (ER) | payer BC ==
--- NOTE | 2021-02-23 11:13 | Emergency Department Report ---
Upper Extremity - HPI Stated Complaint: RIGHT HAND INJURY Time Seen by Provider: 02/23/21 11:12 Upper Extremity: Right Middle Finger Occurred When: 3 Days Mechanism: Fall Severity: moderate Symptoms: Yes Pain with Movement, Yes Limited Range of Movement (with pain), Yes Swelling, No Deformity, No Numbness, No Weakness, No Bruising/Ecchymosis, No Laceration or Abrasion Other History: 30 yo comes to ER 3 days p jamming right middle finger- co pain and swelling. Can move with pain. Distal cap refill rapid ED Review of Systems ROS: Stated complaint: RIGHT HAND INJURY Other details as noted in HPI Comment: All other systems reviewed and negative ED Past Medical Hx - Past Medical History Previous Medical History?: Yes Hx Asthma: Yes Additional medical history: ITP - Surgical History Past Surgical History?: Yes Hx Cholecystectomy: Yes Additional Surgical History: gastric bypass - Family History Family history: no significant - Social History Smoking Status: Never Smoker Substance Use Type: None - Medications Home Medications: Home Medications Medication Instructions Recorded Confirmed Last Taken Type Albuterol Mdi (or & Nicu Only) 2 puff IH QID PRN #1 inhalation 07/10/18 Unknown Rx [Proair] Albuterol Sulfate [Albuterol 0.63% 0.63 mg IH TID PRN #90 ml 07/10/18 Unknown Rx NEBS] Prednisone [predniSONE 10 mg 10 mg PO .TAPER #1 tab.ds.pk 07/10/18 Unknown Rx (6-Day Pack, 21 Tabs)] Albuterol Sulfate [Albuterol 0.63% 0.63 mg IH Q4HR PRN #2 ml 10/10/18 Unknown Rx NEBS] Albuterol Sulfate [Proair 90 mcg IH Q4HR PRN #2 aer.pow.ba 10/10/18 Unknown Rx Respiclick] Budesonide [Pulmicort Flexhaler] 360 mcg IH BID #2 aer.pow.ba 10/10/18 Unknown Rx Ipratropium (Nf) [Atrovent] 2 puff IH Q6HR PRN #1 inha 10/10/18 Unknown Rx predniSONE [Deltasone] 40 mg PO QDAY #8 tab 10/10/18 Unknown Rx Acetaminophen [Tylenol] 650 mg PO Q6HR PRN #20 tablet 04/23/20 Unknown Rx Ketorolac [Toradol] 10 mg PO Q6H PRN #20 tablet 06/07/20 Unknown Rx Ondansetron [Zofran ODT TAB] 8 mg PO Q12HR #20 tab.rapdis 06/07/20 Unknown Rx Tamsulosin [Flomax] 0.4 mg PO QDAY #5 cap 06/07/20 Unknown Rx Acetaminophen [Non-Aspirin Extra 500 mg PO Q6HR PRN #30 tablet 06/09/20 Unknown Rx Strength] Ondansetron [Zofran Odt] 4 mg PO Q8HR PRN #20 tab.rapdis 06/09/20 Unknown Rx Pantoprazole [Protonix TAB] 20 mg PO QDAY #30 tablet.dr 06/09/20 Unknown Rx oxyCODONE /ACETAMINOPHEN [Percocet 1 tab PO Q4HR #10 tab 06/09/20 Unknown Rx 5/325] Ondansetron [Zofran Odt] 4 mg PO Q4HR PRN #20 tab.rapdis 06/23/20 Unknown Rx Upper Extremity Exam - Exam General: Vital signs noted. No distress. Alert and acting appropriately. right middle finger DIP swelling full ROM distal neuro vasc intact rapid cap refill Head and Torso: No HEENT Abnormality, No Neck Tenderness, No Chest/Lungs Abnormality, No Abdominal Tenderness, No Back Tenderness Shoulder Exam: Yes Normal Range of Motion in Shoulder, No Shoulder Tenderness, No Clavicle Tenderness, No Shoulder Deformity, No AC Joint Tenderness Arm Exam: No Arm/Humerus Tenderness, No Arm Deformity Elbow: No Elbow Tenderness, No Normal Range of Motion in Elbow, No Elbow Deformity Forearm: No Forearm Tenderness, No Forearm Deformity, No Pain with Pronation, No Pain with Supination Wrist: Yes Normal ROM in Wrist, No Wrist Tenderness, No Wrist Deformity, No Snuffbox Tenderness, No Pain with Axial Thumb Compression Hand: Yes Normal ROM in Digit(s), No Hand Tenderness, No Hand Deformity, No Digit Tenderness, No Digit(s) Deformity, No Tendon Dysfunction CMS Exam: No Broken Skin, No Normal Distal Pulses, No Normal Capillary Refill, No Normal Distal Sensation ED Medical Decision Making - Radiology Data Radiology results: report reviewed, image reviewed nap - Medical Decision Making xray neg fx Vital Signs 02/23/21 11:11 Temperature 98 F Pulse Rate 89 Respiratory 16 Rate Blood Pressure 146/61 [Left] O2 Sat by Pulse 96 Oximetry Educated on RICE therapy Dc home with dc plan of care including RICE/OTC pain control and follow up . Pt verbalizes understanding of plan of care Ambulatory and non ill appearing on discharge - Differential Diagnosis ro fx Critical care attestation.: If time is entered above; I have spent that time in minutes in the direct care of this critically ill patient, excluding procedure time. ED Disposition Clinical Impression: Jammed interphalangeal joint of finger of right hand Qualifiers: Encounter type: initial encounter Qualified Code(s): S69.91XA - Unspecified injury of right wrist, hand and finger(s), initial encounter Contusion Qualifiers: Contusion area: finger Disposition: 01 HOME / SELF CARE / HOMELESS Is pt being admited?: No Does the pt Need Aspirin: No Condition: Stable Additional Instructions: rest ice elevated motrin or tylenol for pain follow up with pcp if pain persists xray normal today - no fracture Referrals: DALY TORRES MD [Primary Care Provider] - 3-5 Days DELL ADHIKARI MD [Staff Physician] - 3-5 Days Forms: Work/School Release Form(ED) Time of Disposition: 11:41
[2021-02-23 11:15] VITALS: BP 146/61
--- NOTE | 2021-02-23 11:42 | XRay Report ---
RIGHT FINGER(S) 3 VIEW(S) INDICATION / CLINICAL INFORMATION: pain sp jamming finger COMPARISON: None available. FINDINGS: BONES / JOINT(S): No acute fracture or subluxation. No significant arthritis. SOFT TISSUES: No significant abnormality. ADDITIONAL FINDINGS: None. Signer Name: Marcos Galloway MD Signed: 02/23/2021 11:37 AM Workstation Name: [facility]
== END 2021-02-23 12:00 | disposition home or self-care (01) ==
LOC: ED 10:10
DX: S60.031A Contusion of right middle finger without damage to nail, initial encounter (principal); J45.909 Unspecified asthma, uncomplicated; Z98.890 Other specified postprocedural states; X58.XXXA Exposure to other specified factors, initial encounter; Y93.89 Activity, other specified; Y92.89 Other specified places as the place of occurrence of the external cause; Y99.8 Other external cause status
CPT/HCPCS: 99283

== ENCOUNTER 2021-08-11 19:20 | Emergency (ER) | payer BC ==
--- NOTE | 2021-08-11 20:15 | XRay Report ---
CHEST 2 VIEWS INDICATION / CLINICAL INFORMATION: chest pain. COMPARISON: 07/09/2018 FINDINGS: SUPPORT DEVICES: None. HEART / MEDIASTINUM: No significant abnormality. LUNGS / PLEURA: No significant pulmonary or pleural abnormality. No pneumothorax. ADDITIONAL FINDINGS: No significant additional findings. IMPRESSION: 1. No acute findings. Signer Name: Gus Avina MD Signed: 08/11/2021 8:11 PM Workstation Name: [id number]
--- NOTE | 2021-08-13 08:54 | Electrocardiograph Report ---
[facility] Test Date: 2021-08-11 Test Time: 19:34:18 Pat Name: TELMA FITZPATRICK Department: Room: Gender: M Cook Morning: [id number] : 1990 Requested By: ED DOC Order Number: [id number] Reading MD: Matthew Ramirez Measurements Intervals [place] Rate: 105 P: 67 VA: 159 QRS: 64 QRSD: 97 T: 37 QT: 367 QTc: 485 Interpretive Statements Sinus tachycardia [id number] No previous ECG available for comparison Electronically Signed On 08-13-2021 8:54:03 EDT by Matthew Ramirez
== END 2021-08-11 20:00 | disposition left against medical advice (07) ==
LOC: ED 19:20
DX: R07.89 Other chest pain (principal); Z53.21 Procedure and treatment not carried out due to patient leaving prior to being seen by health care provider
CPT/HCPCS: 71046; 93005